=== PATIENT | female | born 1965 | race Hispanic/Latino ===

== ENCOUNTER 2018-06-10 02:59 | Emergency (ER) | payer OTHER ==
[2018-06-10] MEDS ORDERED: KETOROLAC TROMETHAMINE 30MG/ML ONE (05:04)
[2018-06-10] MEDS ORDERED: CYCLOBENZAPRINE HCL 10 MG TABLET ONE (05:05)
== END 2018-06-10 07:50 | disposition home or self-care (01) ==
LOC: EDH 02:59
DX: S20.221A Contusion of right back wall of thorax, initial encounter (principal); R09.02 Hypoxemia; Z90.49 Acquired absence of other specified parts of digestive tract; Z72.0 Tobacco use; Y04.0XXA Assault by unarmed brawl or fight, initial encounter; Y93.89 Activity, other specified; Y92.89 Other specified places as the place of occurrence of the external cause; Y99.8 Other external cause status
CPT/HCPCS: 72072; 96372; 99283; J1885